=== PATIENT | male | born 1965 ===

== ENCOUNTER 2017-09-30 08:44 | Outpatient (CLI) | payer OTHER ==
[~2017-09-30] VITALS: Ht 175.3 cm; Wt 81.6 kg
== END 2017-09-30 09:00 | disposition home or self-care (01) ==
LOC: OFIC 805 08:44
DX: K21.9 Gastro-esophageal reflux disease without esophagitis (principal); R13.19 Other dysphagia

== ENCOUNTER 2018-03-10 08:30 | Outpatient (CLI) | payer OTHER ==
[~2018-03-10] VITALS: Ht 152.4 cm; Wt 81.6 kg
== END 2018-03-10 08:45 | disposition home or self-care (01) ==
LOC: OFIC 805 08:30
DX: G44.89 Other headache syndrome (principal); R42 Dizziness and giddiness